=== PATIENT | male | born 1995 | race Native Hawaiian/Other Pacific Islander ===

== ENCOUNTER 2017-01-11 11:08 | Observation (INO) | payer OTHER ==
[2017-01-11 11:14] VITALS: RESP 18; O2SAT 98
--- NOTE | 2017-01-11 12:00 | ED PDOC ---
HPI: General Adult Time Seen by Provider: 01/11/17 11:26 Chief Complaint (Nursing): Male Genitourinary History Per: Patient Additional Complaint(s): Pt. states yesterday he noticed that his urine was red in color which continued today prompting ED visit. Denies fever, testicular pain, pain, back/flank pain, dysuria, penile discharge, rash. Of note, pt. is not currently sexually active. Last intercourse was 2-3 years ago. Past Medical History Reviewed: Historical Data, Nursing Documentation, Vital Signs Vital Signs: Last Vital Signs Temp 98.5 F 01/11/17 11:25 Pulse 85 01/11/17 11:25 Resp 18 01/11/17 11:25 BP 121/78 01/11/17 11:25 Pulse Ox 98 01/11/17 12:00 - Family History Family History: States: No Known Family Hx - Home Medications Home Medications: Ambulatory Orders Medication Instructions Recorded Ciprofloxacin [Cipro] 500 mg PO BID #14 tab 01/11/17 - Allergies Allergies/Adverse Reactions: Allergies Allergy/AdvReac Type Severity Reaction Status Date / Time No Known Allergies Allergy Verified 01/11/17 11:24 Review of Systems ROS Statement: Except As Marked, All Systems Reviewed And Found Negative Musculoskeletal: Positive for: Shoulder Pain Physical Exam - Physical Exam Appears: Positive for: Well, Non-toxic, No Acute Distress Skin: Positive for: Normal Color, Warm. Negative for: Rash Gastrointestinal/Abdominal: Positive for: Normal Exam, Bowel Sounds, Soft. Negative for: Tenderness Back: Positive for: Normal Inspection. Negative for: L CVA Tenderness, R CVA Tenderness Extremity: Positive for: Normal ROM Neurologic/Psych: Positive for: Alert, Oriented - Laboratory Results Result Diagrams: 01/11/17 13:45 01/11/17 13:45 - ECG O2 Sat by Pulse Oximetry: 98 ED OBSERVATION Discharge: Yes Date of observation admission: 01/11/17 Time of observation admission: 13:41 - Observation admission statement Patient is being placed in observation because:: hematuria - Progress Note Progress Note: 01/11/17 13:54 Case d/w Dr. Li and recommends labs and CT. Labs ordered. CT abd/pelvis ordered. 01/11/17 15:55 CT abd/pelvis w/o contrast: Several small calculi left renal collecting system. . Punctate calcification midpole right kidney No definitive evidence of obstructive hydronephrosis. Case d/w Dr. Baires, urology line installation supervisor, and recommends pt. be discharged with Cipro and to f/u in his office on Monday. Pt. informed of results and plan. Verbalized correct understanding of plan and necessary f/u. Disposition - Clinical Impression Clinical Impression: Nephrolithiasis - Patient ED Disposition Is Patient to be Admitted: No - Disposition Referrals: Bob Baires MD [Staff Provider] - Disposition: Routine/Home Disposition Time: 15:56 Condition: STABLE Additional Instructions: FOLLOW U WITH DR. BAIRES ON MONDAY. CALL HIS OFFICE TODAY TO MAKE APPOINTMENT FOR MONDAY. Prescriptions: Ciprofloxacin [Cipro] 500 mg PO BID #14 tab Instructions: Kidney Stones (ED), How to Strain Your Urine (ED) Forms: [facility] (Urdu) Print Language: [id number]
[2017-01-11 13:05] LABS: RBC URINE 4740 /hpf (0-3); URINE BILIRUBIN NEGATIVE (NEGATIVE); URINE BLOOD LARGE (NEGATIVE); URINE GLUCOSE (UA) 50 mg/dL (Normal); URINE KETONE 20 mg/dL (NEGATIVE); URINE LEUKOCYTE ESTERASE NEG Leu/uL (Negative); URINE PROTEIN >=500 mg/dL (NEGATIVE); URINE UROBILINOGEN 0.2-1.0 mg/dL (0.2-1.0)
[2017-01-11 13:07] LABS: URINE COLOR RED (YELLOW)
[2017-01-11] MEDS ORDERED: Sodium Chloride 0.9% 1,000 ML IV STA (13:16)
[2017-01-11 13:56] LABS: BASO % 0.5 % (0.0-2.0); EOS % 0.4 % (0.0-4.0); HEMATOCRIT 42.3 % (35.0-51.0); LYMPH # 1.1 K/uL (1.0-4.3); LYMPH % 18.3 % (20.0-40.0); MEAN CELL VOLUME 92.9 fl (80.0-94.0); MEAN CORPUSCULAR HEMOGLOBIN 33.3 pg (27.0-31.0); MEAN CORPUSCULAR HGB CONC 35.8 g/dL (33.0-37.0); MEAN PLATELET VOLUME 8.5 fl (7.2-11.7); MONO # 0.4 K/uL (0.0-0.8); MONO % 6.1 % (0.0-10.0); NEUT # 4.5 K/uL (1.8-7.0); NEUT % 74.7 % (50.0-75.0); NRBC % 0.1 % (0.0-0.0); RED CELL DISTRIBUTION WIDTH 12.3 % (11.5-14.5)
--- NOTE | 2017-01-11 15:13 | CT ---
PROCEDURE: CT abdomen and pelvis dated 01/11/2017 HISTORY: Hematuria COMPARISON: No prior study available for comparison TECHNIQUE: Contiguous axial images of the abdomen pelvis performed without oral or intravenous contrast material. Additional 2 dimensional sagittal and coronal reformats provided. Radiation dose: Total exam DLP = 227.49 mGy-cm. This CT exam was performed using one or more of the following dose reduction techniques: Automated exposure control, adjustment of the mA and/or kV according to patient size, and/or use of iterative reconstruction technique. FINDINGS: LOWER THORAX: Lung bases clear. No infiltrate effusion or basilar pneumothorax. Tiny hiatal hernia. Heart size normal. No significant pericardial effusion. LIVER: Liver exhibits normal size measuring approximately 16.5 cm in CC dimension. No obvious hepatic mass or collection. GALLBLADDER AND BILE DUCTS: Gallbladder is physiologically distended. No evidence of intraluminal gallbladder calculi. PANCREAS: These poorly delineated due to a paucity of retroperitoneal and intraperitoneal fat. . No gross pancreatic masses or collections. SPLEEN: Spleen exhibits normal size and attenuation pattern. ADRENALS: No adrenal lesions KIDNEYS AND URETERS: Several tiny (the largest 2 measuring approximately 3.1 mm) in the left renal collecting system however no gross hydronephrosis seen on this exam. Note however that the ureters are not well delineated due to the paucity of retroperitoneal fat. Punctate calcification midpole right kidney. There is also a paucity of intraperitoneal fat as well. BLADDER: The urinary bladder is incompletely distended which may account for slight thick-walled appearance. Possibility of a cystitis not excluded. REPRODUCTIVE: Unremarkable as visualized APPENDIX: Normal-appearing appendix best seen on axial image number [id number]. BOWEL: Evaluation of the bowel is limited due to the lack of oral contrast. Stomach is incompletely distended which presumably accounts for slight thick-walled appearance. Visualized loops of small bowel exhibit normal contour and caliber. No evidence of acute mechanical small bowel obstruction. Stool and air seen throughout the colon with no definitive mural wall thickening PERITONEUM: Unremarkable. No fluid collection. No free air. LYMPH NODES: Unremarkable. No enlarged lymph nodes. VASCULATURE: No evidence of abdominal aortic aneurysm. BONES: Osseous structures appear grossly unremarkable. OTHER FINDINGS: None. IMPRESSION: Several small calculi left renal collecting system. . Punctate calcification midpole right kidney No definitive evidence of obstructive hydronephrosis.
[2017-01-11 15:20] LABS: BLOOD UREA NITROGEN 13 mg/dl (9-20); CALCIUM 9.5 mg/dL (8.4-10.2); CARBON DIOXIDE 24 mmol/L (22-30); CHLORIDE 104 mmol/L (98-107); GFR AFRICAN-AMERICAN > 60; GLUCOSE,RANDOM 75 mg/dL (75-110); POTASSIUM 4.1 MMOL/L (3.6-5.0); SODIUM 139 mmol/l (132-148)
[2017-01-11 15:21] LABS: ALB/GLOB RATIO 1.6 (1.0-2.1); ALKALINE PHOSPHATASE 47 U/L (38-126); ALT/SGPT 18 U/L (21-72); AST/SGOT 23 U/L (17-59); BILIRUBIN,TOTAL 1.5 mg/dl (0.2-1.3); TOTAL PROTEIN 7.5 G/DL (6.3-8.2)
[2017-01-11 16:00] VITALS: BP 116/75; PULSE 68; TEMP 98.2
== END 2017-01-11 15:58 | disposition home or self-care (01) ==
LOC: H.ER 11:08 → H.EROBSV 13:41
PROVIDERS: ADMIT Emergency Medicine; ATTEND Emergency Medicine
DX: N20.0 Calculus of kidney (principal); R31.9 Hematuria, unspecified
CPT/HCPCS: 74176; 80053; 81003; 85025; 87086; 96360; 99283; G0378; J7040